=== PATIENT | female | born 1985 | race Caucasian/White ===

== ENCOUNTER 2022-07-18 05:31 | Outpatient (CLI) | payer BC ==
[~2022-07-18] VITALS: Ht 160 cm; Wt 87.3 kg
[2022-07-18] MEDS ORDERED: CITA20TA9 PO (13:44)
[2022-07-18] MEDS ORDERED: LEVO5TAB28 PO (13:44)
[2022-07-18] MEDS ORDERED: LEVO25CA4 PO (13:44)
== END 2022-07-18 13:50 | disposition home or self-care (01) ==
LOC: PREOP 05:31
PROVIDERS: ATTEND Surgery
DX: Z01.818 Encounter for other preprocedural examination (principal)

== ENCOUNTER 2022-07-25 08:54 | Day surgery (SDC) | payer BC ==
[2022-07-25] VITALS (11 sets, daily range): BP systolic 103–125; BP diastolic 67–85
[~2022-07-25] VITALS: Ht 160 cm; Wt 87.3 kg
[~2022-07-25 08:54] MED LIST: CITA20TA9 PO; LEVO25CA4 PO; LEVO5TAB28 PO
[2022-07-25] MEDS ORDERED: ceFAZolin INJECTION 2,000 MG in NS (IVPB) 50 ML IV ONE (09:15)
[2022-07-25] MEDS ORDERED: CATHETER FLUSH 10 ML SYR IVP PRN (09:15)
[2022-07-25] MEDS ORDERED: LACTATED RINGERS 1,000 ML IV PRN (09:15)
[2022-07-25] MEDS ORDERED: BUP/EPI 0.5% 1:200,000 (SENSORCAINE) 30 ML VIAL ONE (09:25)
[2022-07-25] MEDS ORDERED: ONDANSETRON 4 MG/2 ML (SDV) Z0FRAN ONE ×2 (09:58→10:18)
[2022-07-25] MEDS ORDERED: SCOPOLAMINE 1.5 MG (TRANSDERM-SCOP) PATCH ONE (09:58)
[2022-07-25] MEDS ORDERED: FAMOTIDINE 20MG/2ML IV (PEPCID) ONE (09:58)
[2022-07-25] MEDS ORDERED: SCOPOLAMINE 1.5 MG (TRANSDERM-SCOP) PATCH TOP ONE (10:00)
[2022-07-25] MEDS ORDERED: FAMOTIDINE 20MG/2ML IV (PEPCID) IV ONE (10:00)
[2022-07-25] MEDS ORDERED: ONDANSETRON 4 MG/2 ML (SDV) Z0FRAN IV ONE (10:00)
[2022-07-25] MEDS ORDERED: LIDOCAINE PF 2% 5 ML (XYLOCAINE) VIAL ONE (10:18)
[2022-07-25] MEDS ORDERED: SEVOFLURANE (ULTANE) 15 ML INHAL SOLN ONE (10:18)
[2022-07-25] MEDS ORDERED: proPOfol 200 MG/20 ML (DIPRIVAN) VIAL IV ONE (10:18)
[2022-07-25] MEDS ORDERED: fentaNYL INJ 100 MCG/2 ML AMP ONE (10:18)
[2022-07-25] MEDS ORDERED: MIDAZOLAM 2 MG/2 ML (VERSED) VIAL ONE (10:19)
[2022-07-25] MEDS ORDERED: CLINDAMYCIN 600 MG/50 ML IVPB 50 ML IV ONE (10:26)
--- NOTE | 2022-07-25 10:30 | Progress Note-Pre Operative ---
Pre-Operative Progress Note Date of Available H&P: Jul 10, 2022 Date H&P Reviewed: Jul 25, 2022 Time H&P Reviewed: 10:27 History & Physical: H&P Reviewed, Patient Examed, No changes noted Pre-Operative Diagnosis: LLQ mass possible hernia, site marked WELLINGTON BUSTAMANTE DO Jul 25, 2022 10:30
--- NOTE | 2022-07-25 11:11 | Anesthesia-General Post-Op ---
General Patient Condition Mental Status/LOC: Same as Preop Cardiovascular: Satisfactory Nausea/Vomiting: Absent Respiratory: Satisfactory Pain: Controlled Complications: Absent Post Op Complications Complications None Follow Up Care/Instructions Patient Instructions None needed. Anesthesia/Patient Condition Patient Condition Patient is doing well, no complaints, stable vital signs, no apparent adverse anesthesia problems. No complications reported per nursing. YOUSUF FLORENTINO CRNA Jul 25, 2022 11:11
--- NOTE | 2022-07-25 11:13 | Progress Note-Post Operative ---
Post-Operative Progess Note Surgeon (s)/Adjunct Trainer (s) Surgeon WELLINGTON BUSTAMANTE DO Adjunct Trainer: TRACY Andrade Pre-Operative Diagnosis LLQ mass possible hernia, site marked Post-Operative Diagnosis LLQ mass probable lipoma Procedure & Operative Findings Date of Procedure 07/25/22 Procedure Performed/Findings Excision of LLQ mass, 6.1cm incision in the subcutaneous tissue Anesthesia Type LMA Estimated Blood Loss Estimated blood loss (mL): scant Specimens/Packing Specimens Removed LLQ mass measuring appx 13 x 10 x 2.5cm WELLINGTON BUSTAMANTE DO Jul 25, 2022 11:13
[2022-07-25] MEDS ORDERED: TRM50T PO (11:14)
[2022-07-25] MEDS ORDERED: morphine INJ 10 MG/ML 1ML (SYR OR VIAL) IVP ONE (11:15)
[2022-07-25] MEDS ORDERED: ONDANSETRON 4 MG/2 ML (SDV) Z0FRAN IVP PRN (11:15)
[2022-07-25] MEDS ORDERED: PROMETHAZINE INJ 25 MG/ML (PHENERGAN) AMP IVP ONE (11:15)
--- NOTE | 2022-07-25 11:15 | Discharge Inst-Surgical ---
Discharge Inst-Surgical Depart Medication/Instructions New, Converted or Re-Newed RX: Transmitted to Pharmacy Patient Instructions Follow up Appt: Make appointment for 1 week. [phone] Instructions: No lifting greater than 20 pounds. No strenuous activity. May shower in 24 hours, no tub bath or soaking. Use incentive spirometer at home as directed. No Smoking Skin/Wound Care: May remove bandages in am. You need to leave the Dermabond on incision it will fall off on it's own. Symptoms to Report: Appetite Changes, Extremity Discoloration, Numbness/Tingling, Swelling Increased, Bleeding Excessive, Eyesight Changes, Pain Increased, Urine Color Change, Constipation(Persistent), Fever over 101 degree F, Pain/Pressure in chest, Urinating Difficulty, Cough Up/Vomit Blood, Heart Beat Irreg/Pounding, Pain/Pressure in jaw, Cramps in feet or legs, Lightheadedness, Pain/Pressure in shoulder, Diarrhea(Persistent), Memory Changes Suddenly, Questions/Concerns, Weight gain consecutive days, Dizziness/Fainting, Nausea/Vomiting, Shortness of Breath, Weight gain over 2 pounds If questions or concerns contact your physician Or seek help at emergency department. Activity Activity as Tolerated: Yes Activity Instructions: Avoid Stress to Incision Driving Instructions: No Driving/Refer to Dr. Larson Discharge Diet: No Restrictions Diet After 24 Hours: Clear Liquid if Nauseous If Any Problems/Questions/Issu: Contact Your Physician, Go to Emergency Room Skin/Wound Care Infection Signs and Symptoms: Increased Redness, Foul Odor of Wound, Increased Drainage, Skin Itchy or Has a Rash, Increased Swelling, Temperature Above 101 F Bathing Instructions: Shower Stitches/[place]/Dermabond Dis: WELLINGTON Sierra DO Jul 25, 2022 11:15
--- NOTE | 2022-07-25 22:35 | OPERATIVE REPORT ---
DATE OF SERVICE: 07/25/2022 PREOPERATIVE DIAGNOSIS: Left lower quadrant, almost a left hip mass. POSTOPERATIVE DIAGNOSIS: Left lower quadrant, almost a left hip mass. PROCEDURE: Excision of left lower quadrant/hip mass measuring 6.1 cm incision. SURGEON: Aaron Moser DO. INSOLE AND OUTSOLE SPLITTER: ALLYSON Andrade. SPECIMEN: Left hip mass measuring approximately 13 x 10 x 2.5 cm. BLOOD LOSS: Scant. FLUIDS: Per anesthesia. POSTOPERATIVE CONDITION: Stable. INDICATIONS FOR PROCEDURE: The patient is a 37-year-old female who has a mass on her left hip in the left lower quadrant, right above the inguinal crease. It has been getting larger, unsure what this was. I thought it could be a mass or a hernia and I elected to remove this in the OR. FINDINGS: The patient had a very large mass, most probably a lipoma measured 13 x 10 x 2.5 cm approximately. DESCRIPTION OF PROCEDURE: After informed consent was obtained, the patient was brought to the operating room and placed on the table in supine position, sterilely prepped and draped in normal fashion. Local lidocaine was then used to infiltrate this area over the mass, then site had been marked and this was agreed on during timeout. I elected to make an incision with #15 blade after first infiltrating with Xylocaine with epinephrine. Incision was 6.1 cm, carried down through the skin into the subcutaneous tissue, then deepened down to subcutaneous tissue with Bovie electrocautery bluntly in the area. I immediately started seeing a large lipomatous mass, put my finger in and around this mass, able to kind of shell it out and then removed this, popped right out. It was approximately 13 x 10 x 2.5 cm. This was passed off the table. There were some other small portions of tissue and some sac. This was removed. This all appeared to be just above the fascial layer, copiously irrigated with normal saline. Hemostasis was obtained using Bovie electrocautery, then elected to close the incision, closing the deep tissue with 3-0 Vicryl, 3 interrupted sutures, then closed the skin with a 4-0 undyed Monocryl in running subcuticular fashion. Area was cleaned and dried. A Dermabond and dressing placed. The patient tolerated the procedure. Sponge, instrument and needle count correct at the end of the case. Job ID: [id number] DocumentID: [id number] Dictated Date: 07/25/2022 14:57:33 Zipper Setter Chainstitch Date: 07/25/2022 22:31:00 Dictated By: DO TYREE CASAS
== END 2022-07-25 13:40 | disposition home or self-care (01) ==
LOC: SDC 08:54
PROVIDERS: ATTEND Surgery
DX: D17.1 Benign lipomatous neoplasm of skin and subcutaneous tissue of trunk (principal); Z87.891 Personal history of nicotine dependence
CPT/HCPCS: 87081; 88304; 94664